=== PATIENT | female | born 1955 | race Native Hawaiian/Other Pacific Islander ===

== ENCOUNTER 2017-11-05 12:56 | Inpatient (IN) | payer OTHER ==
[2017-11-05] VITALS (15 sets, daily range): BP systolic 84–140; BP diastolic 51–115; TEMP 98.8–99.1; Ht 170.2 cm; Wt 74.1 kg
[~2017-11-05] VITALS: Ht 170.2 cm; Wt 74.1 kg
--- NOTE | 2017-11-05 12:26 | NUR ---
PT DIRECT ADMIT TO ICU2 FROM [facility] PER WC PT ON O2 AT 3L. O2 SAT 72-76%. PT PLACED ON 100% NON REBREATHER PER RT. EMMA CARBONEP IN TO SEE PT. PT ANXIOUS,TALKING FAST & NONSTOP. PT INSTUCTED TO QUIT TALKING PER EMMA NIEVES.'TO SAVE HER O2'.
[~2017-11-05 12:56] MED LIST: BENZ1TAB43 PO; BUSPIRONE10 MG PO; FAMOTIDINE20 MG PO; FURO20TA67 PO; HYDR50CA21 PO; LEVAQUIN250 MG PO; METO25TA4 PO; POTASSIUM CHLO20 ME1 PO; RISP2TAB2 PO; SERT100T PO; TRILEPTAL300 MG PO
--- NOTE | 2017-11-05 13:10 | NUR ---
LABS DRAWN. PT QUIETER. O2 SATS UP TO 91%.
[2017-11-05 13:21] LABS: PLATELET COUNT 168 K/uL (152-353)
--- NOTE | 2017-11-05 13:31 | NUR ---
ON ARRIVAL TO ICU, THE PATIENT'S SPO2 WAS 72% ON 3LPM NC. MODERATE RESPIRATORY DISTRESS NOTED. THE PATIENT WAS PLACED ON 100% NRB AT 15LPM AND OBTAINED ABG 15 MINUTES LATER. ABG RESULTS GIVEN TO EZEQUIEL GROVES. VERBAL ORDER GIVEN TO PLACE PT ON VM AT 50% AT 15LPM. SPO2 WAS 94% HR 120.
--- NOTE | 2017-11-05 13:40 | NUR ---
18FR CASTELLANO INSERTED/ ASCEPTIC TECHNIQUE WITH RETURN OF MED YELLOW CL URINE.
[2017-11-05 13:54] LABS: POTASSIUM 4.1 mmol/L (3.6-5.2); SODIUM 135 mmol/L (136-145)
[2017-11-05 13:55] LABS: PARTIAL THROMBOPLASTIN TIME 23.6 SECONDS (24.5-33.6)
--- NOTE | 2017-11-05 14:45 | NUR ---
LABS TO EMMA NIEVES. NEW ORDER FOR CTA OF CHEST WITH CONTRAST.
--- NOTE | 2017-11-05 15:44 | NUR ---
PT STABLE TO CT VIA WC ON O2 50% VENTI MASK.
--- NOTE | 2017-11-05 16:10 | NUR ---
PT STABLE,BACK TO ICU 2 VIA WC ON 50% VENTIMASK.
--- NOTE | 2017-11-05 16:45 | NUR ---
RADIOLOGY CALLED WITH REPORT ON CTA OF CHEST. RESULTS TO DR RICHARDSON PER DENA WAYNE RN.NEW ORDERS.
[2017-11-05] MEDS ORDERED: TRILEPTAL300 MG OR (17:57)
[2017-11-05] MEDS ORDERED: SOD CHLORIDE EX (18:00)
--- NOTE | 2017-11-05 18:00 | NUR ---
PT SITTING UP TRYING TO FEED SELF SUPPER,PT ON 4L/NC WHILE EATING,RR RATE INCREASED,HR UP TO 126. O2 SATS DECREASED TO 76%.PT LACED BACK ON 50% VENTIMASK.O2 SATS GRADUALLY BACK UP TO 91%,HR DOWN TO 105.
[2017-11-05] MEDS ORDERED: PROTONIX20 MG PO (18:02)
[2017-11-05] MEDS ORDERED: PSYL0.52C PO (18:04)
[2017-11-05] MEDS ORDERED: ALUM-67 PO (18:06)
[2017-11-05] MEDS ORDERED: TYLENOL325 MG OR ×2 (18:07→18:11)
[2017-11-05] MEDS ORDERED: MILK OF MAGNESI1 SU1 PO (18:09)
[2017-11-05] MEDS ORDERED: ROBITUSS10 OR (18:12)
[2017-11-05] MEDS ORDERED: BENZONATATE200 MG PO (18:13)
--- NOTE | 2017-11-05 20:59 | NUR ---
AWAKE AND VERY TALKATIVE WITH STAFF, NO S/S OF PAIN OR DISTRESS NOTED, IC LOCK INTACT TO R AC WITH NO PROBLEMS NOTED TO SITE, RESP RATE NONLABORED, VENTI MASK IN USE, CASTELLANO PATENT DRAINING TO BEDSIDE, DENIES ANY PAIN OR NEEDS, WILL MONITOR CLOSELY, RAILS UP X3, CALL LIGHT IN REACH, BED IN LOW POSITION.
[2017-11-06] VITALS (22 sets, daily range): BP systolic 91–120; BP diastolic 46–77; TEMP 97.7–98.3
--- NOTE | 2017-11-06 02:28 | NUR ---
PT AWAKE AND ORIENTED TALKING WITH STAFF, IV LOCK INTACT, 18F CASTELLANO PATENT DRAINING TO BEDSIDE WITH CLEAR YELLOW URINE NOTED IN BAG. O2 IN USE VIA NRB WITH SAT OF 97%, RESP RATE 28-30 AND NOTED TO BE LESS SHALLOW COMPARED TO WHEN PT IS ASLEEP RESP RATE ALTERNATES BETWEEN NORMAL DEPTH AND THEN BECOMES FAST AND SHALLOW THEN NORMAL AGAIN. PT DENIES ANY PAIN OR DISTRESS, WILL MONITOR CLOSELY, RAILS UP X3, CALL LIGHT IN REACH, BED IN LOW POSITION.
--- NOTE | 2017-11-06 03:26 | NUR ---
RESTING IN BED WITH EYES CLOSED,NO S/S OF PAIN OR DISTRESS NOTED, IV INTACT WITH NO PROBLEMS NOTED TO SITE, RESP RATE 34 SHALLOW AT TIMES(NOT SHALLOW EARLIER IN SHIFT), APPEARS CALM, CASTELLANO PATENT DRAINING TO BEDSIDE, WILL MONITOR CLOSELY, RAILS UP.
--- NOTE | 2017-11-06 04:45 | NUR ---
0410RESTING QUIETLY IN BED WITH EYES CLOSED, NO S/S OF ACUTE PAIN OR DISTRESS NOTED, IV LOCK INTACT TO L HAND WITH NO PROBLEMS NOTED TO SITE, PULSE RATE BRADYCARDIC 59-57(NO S/S NOTED), RESP RATE 30 AND BREATHS ALTERNATES BETWEEN BEING SHALLOW THEN NORMAL DEPTH FOR A FEW SECONDS THEN BACK TO SHALLOW. CASTELLANO PATENT DRAINING TO BEDSIDE, O2 VIA NRB AT 15 LPM WITH SAT OF 97%, WILL MONITOR, RAILS UP X3, CALL LIGHT IN REACH, BED IN LOW POSITION.
--- NOTE | 2017-11-06 05:06 | NUR ---
0315OBTAINED NEW IV SITE TO L HAND 22G X 1 STICK, GOOD BLOOD RETURN, FLUSHED EASILY WITH 10ML NS, SECURED WITH TAPE AND TEDADERM. IV SITE TO R AC IS NOT SWOLLEN, RED, OR TENDER(PER PT) BUT UNABLE TO GET BLOOD RETURN. FLUSHED WITH 10ML NS WITH NO SWELLING OR PAIN NOTED. WILL MONITOR SITE.
--- NOTE | 2017-11-06 06:08 | NUR ---
RESTING IN POSITION OF COMFORT ON R SIDE IN BED WITH EYES CLOSED, NO S/S OF PAIN OR ACUTE DISTRESS, IV LOCKS INTACT, O2 VIA NRB AT 15LPM WITH SAT OF 94%, CASTELLANO PATENT DRAINING TO BEDSIDE, PT AROUSES BRIEFLY TO OPERATING SYSTEM DESIGNER MOVING HOB TO WEIGH HER, DENIES ANY PROBLEMS OR NEEDS, WILL MONITOR, RAILS UP X3, BED IN LOW POSITION. PT'S COLOR LOOKS BETTER(LESS PALE), RESPIRATIONS SLIGHTLY SHALLOW IMPROVEMENT FROM EARLIER.
--- NOTE | 2017-11-06 08:00 | NUR ---
ASSIST WITH POSITION CHANGE. RESP DEPT HERE PT RECIEVED BREATHING TX. COARSE BREATH SOUNDS RIGHT CHEST . AM CARE
--- NOTE | 2017-11-06 08:23 | NUR ---
PT RECIEVING IV ANTIBOTICS ORDERED. EMMA HA SUPERVISOR PRODUCTION DEPARTMENT VISITED CHECKED PT.
--- NOTE | 2017-11-06 09:49 | NUR ---
PT HAD BEEN MOVED UP IN BED HIGH AM CARE ASSIST WITH BREAKFAST, CHANGED TO NC AT 3L. SAT,S DROPPED MID TO LOW 80'S. PT PLACED ON VENTI MASK AT 50% PER RESP DEPT. SAT DID NOT IMPROVE. PLACE BACK ON 100% NRM . ABG DONE REPORT TO EMMA HA DIECAST MACHINE OPERATOR.
--- NOTE | 2017-11-06 11:19 | NUR ---
PT RESTING IN BED EYES CLOSED RESP WEARING 100% NRB MASK. REPORT TO EMMA HA ROLL HANDLER PT WEARING 50% VENTI MASK SAT DROPS INTO 80'S, PT WITH NRM ON SAT 98%.
[2017-11-06 13:12] LABS: PLATELET COUNT 191 K/uL (152-353)
[2017-11-06 13:22] LABS: POTASSIUM 3.7 mmol/L (3.6-5.2); SODIUM 133 mmol/L (136-145)
--- NOTE | 2017-11-06 14:49 | NUR ---
PT SLEEPING AT LONG INTERVALS IV FLUIDSSTARTED ORDERED. PT CONTINUES TO WANT SOMETHING TO EAT, EVERY TIME MASK CHANGED SAT DROPS. RESP DEPT HERE GIVING BREATHING TX. PT UP HIGH IN BED.
--- NOTE | 2017-11-06 15:01 | NUR ---
PLACED BACK ON NRM SAT ONLY UP TO 88% PT TALKING HAS GOOD COLOR. ALERT. DR LOCO HERE RECIEVED ORDERS WILL GET ABG AND PLACE ON ON BIPAP.
--- NOTE | 2017-11-06 23:30 | NUR ---
PT AWAKE LAYING PRONE(IN POSITION OF COMFORT, STATES SHE SLEEPS THIS WAY USUSALLY), NO S/S OF PAIN OR DISTRESS NOTED, 22G IV INTACT TO L HAND WITH NO PROBLEMS NOTED TO SITE AND NS INFUSING AT 83ML/HR, RESP RATE NONLABORED WITH NONPRODUCTIVE COUGH NOTED AT TIMES, O2 SAT 97% ON NRB AT 15 LPM, CASTELLANO PATENT DRAINING TO BEDSIDE. PT STATES SHE IS HAVING SOME ANXIETY AND THINKING ABOUT HER MOTHER WHO HAS AND THINKING ABOUT EVERYTHING THAT IS GOING ON RIGHT NOW. REQUESTS SOMETHING TO HELP WITH HER NERVES. WILL CONTACT DR. HOOD UP X3, CALL LIGHT IN REACH, BED IN LOW POSITION. PT REPOSITIONS HERSELF IN BED.
[2017-11-07] VITALS (14 sets, daily range): BP systolic 113–147; BP diastolic 60–98; TEMP 96.9–98.1
--- NOTE | 2017-11-07 01:49 | NUR ---
STATES SHE IS FEELING A LITTLE BETTER SINCE ADX OF [place]IST[place] IVP PRN, RESP RATE 30, NRB WITH O2 SAT OF 97%, IV INTACT WITH FLUID ONGOING, PT TALKING WITH AUTOTRANSFUSIONIST, REPOSITIONED HER SELF TO R SIDE AND IS GOING TO TRY AND GET SOME SLEEP SHE STATES, NO S/S OF ACUTE DISTRESS NOTED, CASTELLANO PATENT DRAINING TO BEDSIDE, WILL MONITOR, RAILS UP, BED IN LOW POSITION, CALL LIGHT IN REACH.
--- NOTE | 2017-11-07 02:58 | NUR ---
11/06/17 AT 0010ASSISTED PT TO USE BEDPAN(PT IS CONTINENT BUT UNABLE TO GET UP DUE TO 02 SAT DROPPING), NOTE LARGE BM WITH LOOSE AND FORMED STOOL. PT GETS SOB WHILE MOVING AROUND IN BED AND SOMETIMES WHILE TALKING WITH STAFF. O2 SAT DROPPED TO 87-89%, AFTER PT ENCOURAGED TO TAKE SLOW DEEP BREATHS AND NOT TALK TO STAFF HER O2 SAT INCREASED TO 96% ON NRB. IV INTACT TO L HAND WITH NO PROBLEMS NOTED TO SITE AND NS INFUSING AT 83ML/HR, 18F CASTELLANO PATENT DRAINING TO BEDSIDE, WILL MONITOR CLOSELY, RAILS UP X3, BED IN LOW POSITION, CALL LIGHT IN REACH.
[2017-11-07 06:56] LABS: PLATELET COUNT 176 K/uL (152-353)
--- NOTE | 2017-11-07 08:17 | NUR ---
0412RESTING IN BED WITH EYES CLOSED WITH NO DISTRESS NOTED, IV INTACT WITH FLUID ONGOING, CASTELLANO PATENT DRAINING TO BEDSIDE, NRB AT 15 LPM IN USE, REPOSITIONS HER SELF, WILL MONITOR, RAILS UP X3, CALL LIGHT IN REACH, BED IN LOW POSITION.
[2017-11-07 08:20] LABS: POTASSIUM 3.9 mmol/L (3.6-5.2); SODIUM 136 mmol/L (136-145)
--- NOTE | 2017-11-07 10:30 | NUR ---
TOOK PATIENT OFF NON REBREATHER MASK TO GIVE ENSURE, PATIENT DID NOT TOLERATE BEING OF MASK, OXYGEN SATURATION DROPPED TO 65% WITHIN A SHORT PERIOD OF TIME. MADISON COSME POWER CLEANER OPERATOR WAS NOTIFIED, CALL WAS PLACED TO PATIENT'S . NOTIFIED OF MADISON WANTING TO SPEAK WITH HIM, STATES HE WILL BE HERE WITHIN AN HOUR. CONTINUING TO MONITOR PATIENT'S OXYGEN SATURATION AT THIS TIME.
--- NOTE | 2017-11-07 12:42 | NUR ---
NILAY'S OXYGEN SATURATION 98%, RESPIRATORY THERAPY AT BEDSIDE ALONG WITH MADISON COSME SENIOR DATA WAREHOUSE DEVELOPER. ATIVAN 2 MG IV AND MORPHINE 2MG IV GIVEN. MADISON COSME SENIOR DATA WAREHOUSE DEVELOPER TALKING WITH PATIENT'S BRANDYNNAND ABOUT POSSIBLE TRANSFER TO ANOTHER FACILITY. PATIENT'S OZYGEN SATURATION IS NOW AT 89%, HR 115, BP 132/80
--- NOTE | 2017-11-07 13:29 | NUR ---
SPOKE WITH AIRAM ARVIZU LPN ABOUT [facility]PT[facility]. PATIENTS ROOM ASSIGNMENT IS CALLED. PATIENT IS GOING TO ICU EAST BED 2. TRANSPORTATION IS ARRANGED BY [facility]. PATIENT REPORT CALLED TO JC CANO RN. PATIENT IS LYING IN BED HIGH FOWLERS 124/70, 94, 93%, 24. PATIENT IS RESTING COMFORATABLY WITH NO DISTRESSED NOTED AT THIS TIME.
--- NOTE | 2017-11-07 13:35 | NUR ---
ATTEMPTED TO CONTACT PTS SPOUSE MULTIPLE TIMES. CELL NUMBER HAD A BUSY SIGNAL AND NEVER RANG.
--- NOTE | 2017-11-07 13:52 | NUR ---
EMS AT TO TRANSPORT TO [facility] IN [place]. NONREBREATHER MASK INTACT. NAD NOTED. PT LEFT VIA STRETCHER.
== END 2017-11-07 13:51 | disposition short-term general hospital (02) | DRG 189 ==
LOC: ICU 12:56
PROVIDERS: ADMIT Psychiatry & Neurology Psychiatry
DX: J96.01 Acute respiratory failure with hypoxia (principal); R06.09 Other forms of dyspnea; J84.10 Pulmonary fibrosis, unspecified; K21.9 Gastro-esophageal reflux disease without esophagitis; I45.19 Other right bundle-branch block; R00.0 Tachycardia, unspecified; Z99.81 Dependence on supplemental oxygen; I10 Essential (primary) hypertension; J44.9 Chronic obstructive pulmonary disease, unspecified; F25.0 Schizoaffective disorder, bipolar type
CPT/HCPCS: 36415; 36600; 51702; 80053; 81000; 82550; 82805; 82962; 83605; 83880; 84484; 85027; 85379; 85610; 85730; 87040; 87899; 93005; 94640; 94664; 94760; 96372; J1650; J1940; J1956; J2060; J2270; J2543; J2930; J3410; J3490; Q9963

== ENCOUNTER 2017-11-07 13:56 | Outpatient (CLI) | payer OTHER ==
[~2017-11-07 13:56] MED LIST changes: +ALUM-67 PO; +BENZONATATE200 MG PO; +MILK OF MAGNESI1 SU1 PO; +PROTONIX20 MG PO; +PSYL0.52C PO; +ROBITUSS10 OR; +SOD CHLORIDE EX; +TRILEPTAL300 MG OR; +TYLENOL325 MG OR
== END 2017-11-07 14:34 | disposition short-term general hospital (02) ==
LOC: AMB 13:56
DX: J96.01 Acute respiratory failure with hypoxia (principal); R06.09 Other forms of dyspnea; J84.10 Pulmonary fibrosis, unspecified; K21.9 Gastro-esophageal reflux disease without esophagitis; I45.19 Other right bundle-branch block; R00.0 Tachycardia, unspecified; Z99.81 Dependence on supplemental oxygen; I10 Essential (primary) hypertension; J44.9 Chronic obstructive pulmonary disease, unspecified; F25.0 Schizoaffective disorder, bipolar type
CPT/HCPCS: A0425; A0427